=== PATIENT | male | born 1955 | race Caucasian/White ===

== ENCOUNTER 2023-12-26 01:27 | Day surgery (SDC) | payer MEDICARE, SELFPAY ==
--- NOTE | 2023-12-24 13:24 | PC.NURSE ---
Report to the Outpatient Waiting Room, entrance under the green pavilion located off [facility], at time __0700 on date __12/26/23 . Planned Procedure Time: _0900 . Time changes happen often and if your time is changed the preop area will call you the afternoon before. - You and your visitor will be asked to self-screen and do not enter if you have any COVID symptoms. - A mask is optional within the hospital at this time. Patients may have clear liquids (water, carbonated beverages, clear teas, apple juice) until 3 hours prior to surgery ( 6:00AM)with a maximum of 20 ounces. - No food from midnight until time of surgery - Infants may have breast milk until 4 hours before surgery, formula 6 hours prior to surgery. - Children will be allowed to drink immediately following surgery. If applicable, please bring a bottle or sippy cup to assist with drinking. Juice, water, soda, and popsicles are readily available. For infants on formula, please bring formula the day of surgery. Pacifiers are allowed. Take the following medications with a SIP of water the morning of surgery: NONE DO NOT STOP ANY OF YOUR OTHER PRESCRIPTION MEDICATIONS PRIOR TO SURGERY ?EXCEPT THE FOLLOWING Medications to discontinue per physician NONE Please no make-up, nail icelandic, hairspray, perfume, deodorant, or body powder the day of surgery. No jewelry (including any body piercings) or valuables the day of surgery, leave them at home. Please take a shower or bath the night before, or the morning of, surgery with an antibacterial soap. Wear comfortable, loose fitting clothing. Children are encouraged to wear pajamas. - Jewelry must be removed prior to entering the operating room. Rings and piercings that are not removed may be cut off. - The hospital will not accept responsibility for valuables. - Please leave all valuables, including medications, at home the day of surgery. If you are going home after surgery, a licensed [employer] flat[employer] company truck driver must drive you home. - NO public transportation without another adult if you receive anesthesia. - We recommend that an adult stay with you for 24 hours following discharge. - We also recommend that you do not drive, make important decision, drink alcoholic beverages, or take any drugs that were not prescribed by your health care provider for at least 24 hours after your discharge time. Follow any additional instructions given to you from your surgeon. If you or anyone in your household have experienced Covid symptoms in the past week, please notify your surgeon or the nurse liaison at the phone number below for possible testing. Telephone instructions given to __PATIENT and asked if any additional questions and then verbalized understanding. Patient advised to call surgeon office or pre surgery nurse liaison [phone] if any additional questions.
[2023-12-24 13:28] VITALS: BMI 31.6
[2023-12-26] VITALS (9 sets, daily range): BP systolic 102–138; BP diastolic 64–88; PULSE 71–95; RESP 14–20; TEMP 36.6–36.8; O2SAT 98–100
--- NOTE | ~2023-12-26 | XR_ITS ---
Supine and upright views of the abdomen Clinical history: Lithotripsy Findings: Bowel gas pattern is nonspecific. No evidence for obstruction or free air. There are probab le multiple small bilateral renal stones. Calcifications at the left midabdomen suggest possibly prox imal to mid left ureteral stones, measuring up to 17 mm, versus other soft tissue mineralization. Oss eous structures are intact. Impression: Possible mid left ureteral stones measuring up to 17 mm. Small bilateral renal stones also present. Reviewed, dictated and finalized at location . [employer] STUDENT TUTOR Impression: Possible mid left ureteral stones measuring up to 17 mm. Small bilateral renal stones also present.
[2023-12-26 07:52] LABS: Amorphous Sediment Urine Present; Appearance Urine Cloudy (Clear); Bacteria Urine None Seen /hpf; Bilirubin Urine Negative (Negative); Blood Urine 3+ (Negative); Color Urine Yellow (Yellow); Glucose Urine UA Negative (Negative); Ketones Urine Negative (Negative); Leukocyte Esterase Ur 1+ LEU/UL (Negative); Need Manual Microscopic Reviewed; Nitrate Urine Negative (Negative); Non Pathogenic Casts 0-2; Protein Urine Trace mg/dL (Negative); Squamous Epithelial Cell Urine None seen /hpf (Few); WBC Urine 0-5 /hpf
[2023-12-26 07:53] LABS: Add Urine Microscopic? YES
[2023-12-26] MEDS: LACTATED RINGERS 1,000 ML 30 ML IV CONT ×2 (08:00→10:27)
--- NOTE | 2023-12-26 08:09 | WPDANESEPPF ---
Anes - Initial Pre Proc Eval Procedure: Operation Date: 12/26/23 09:00 Proposed Procedures p Left Ureteral Extracorporeal Shock Wave Lithotripsy - Kingsley Simon MD s Possible Cystoscopy, Left Retrograde Pyelogram, Left Stent Placement - Kingsley Simon MD Date/Time: 12/26/23 08:09 Surgeon: Kingsley Simon MD Pre Op Diagnosis: left ureteral stone Patient Data Age: 68 Gender: M Height: 1.78 m Weight: 99.85 kg Allergies Allergy/AdvReac Type Severity Reaction Status Date / Time No Known Allergies Allergy Verified 12/24/23 13:16 Home Medications Medication Instructions Recorded Confirmed Type hydrocodone 5 mg-acetaminophen 325 1 tablet PO Q6H PRN Pain 12/24/23 12/26/23 History mg tablet Laboratory Tests 12/26/23 12/26/23 07:26 07:56 PT Pending INR Pending APTT Pending Urine Color Yellow (Yellow) Urine Appearance Cloudy H (Clear) Urine pH 6.0 (5.0-9.0) Ur Specific [place] 1.020 (1.001-1.035) Urine Protein Trace mg/dL (Negative) Urine Glucose (UA) Negative mg/dL (Negative) Urine Ketones Negative mg/dL (Negative) Ur Blood (Man) 3+ H (Negative) Urine Nitrate Negative (Negative) Urine Bilirubin Negative (Negative) Urine Urobilinogen 1.0 mg/dL (<2.0) Add Ur Microanalysis Reviewed Leukocyte Esterase Rfl 1+ H KINGS/UL (Negative) Urine RBC 11-20 H /hpf (0-2) Urine WBC 0-5 /hpf Ur Squamous Epith Cells None seen /hpf (Few) Amorphous Sediment Present (None) Urine Bacteria None seen /hpf Urine Casts 0-2 Patient hx anesthesia problems: none Family hx anesthesia problems: none Results Review: All pre-operative results and documents have been reviewed as part of the pre-operative evaluation. [facility] Past Medical History Medical History (Updated 12/26/23 @ 08:09 by Shawn Cash MD) History of renal stone Surgical History Surgical History (Updated 12/26/23 @ 08:09 by Shawn Cash MD) H/O lithotripsy Social History Social History Smoking status: Never smoker Living arrangements: alone Spiritual care concerns: No Anes - Eval Final PreProcedure Day of Procedure 12/26/23 08:09 Patient weight: obese Heart: regular rate and rhythm Lungs: clear to auscultation Airway: Mallampati scale class II Neurological: alert and oriented Last oral intake: >/= 8 hours ASA classification: II Emergent: no Anesthetic plan: proceed Anesthesia type and monitoring: general LMA and standard monitoring Results Review: All pre-operative results and documents have been reviewed as part of the pre-operative evaluation. Informed Consent: The patient's anesthetic plan and its attendant risks and benefits were discussed with the patient/family/POA. Questions were solicited and answers provided to the satisfaction of the patient/family/POA.
--- NOTE | 2023-12-26 08:14 | WPDHPUPDATE1 ---
History and Physical Update Update Date/Time: 12/26/23 08:14 History and Physical has been reviewed, including an updated exam of the patient. There are NO changes in the patient's condition. Risks, benefits, and alternatives have been discussed and questions answered. Patient agrees to proceed with procedure. Proceed with left ureteral eswl
[2023-12-26 08:26] LABS: Prothrombin Time 13.7 Seconds (11.1-14.7)
[2023-12-26 08:27] LABS: Partial Thromboplastin Time 33.5 SECONDS (22.3-36.8)
--- NOTE | 2023-12-26 08:31 | SUR.PREOP ---
0730-Pt alone, daughter listed as contact-pt states Do not call my daughter. Alexander will pick me up at 1:00 Ask pt for Alexander's number-states he doesn't have a number, he doesn't have a phone Will defer situation to outside sales manager. 0740-Madison Valdes RN in to speak with pt. 0743-Madison Valdes to speak w/Dr. Simon.
--- NOTE | 2023-12-26 08:40 | SUR.PREOP ---
0800-Dr. Cash aware of above. 0823-Pt provides work # for Alexander. Contacted #-lady states Alexander comes and goes but I will give him your number if he comes in Dr. Simon aware.
[2023-12-26] MEDS: ceFAZolin 2 GM/D5W 50 ML 2 GM/50 ML BAG IVPB (08:46)
--- NOTE | 2023-12-26 09:11 | SUR.PREOP ---
0857-Pt's brother called-info given for p/u and states he will arrange a ride for pt leaf size picker ~1100.
--- NOTE | 2023-12-26 09:33 | W.PM.PROC2 ---
Procedure Note - Detailed Date of Procedure 12/26/23 Pre-op Diagnosis left ureteral stone-1.2 cm Post-op Diagnosis Same Procedure Performed Lithotripsy of left ureteral calculus Surgeon Kingsley Simon MD Anesthesia General Description of Procedure Patient was taken to the operative suite correctly identified. Once anesthesia was obtained was placed in the supine position with the stone localized in both planes. Patient had refused a ureteral stent. As such 3000 shocks were given to the stone. There appeared to be some fragmentation but obviously is not completely gone. Patient tolerated procedure well without any complications and was taken recovery stable condition. He will follow-up in 7-10 days with KUB. This completes dictation. Please send a copy of op note to my office. Estimated Blood Loss 0 Drains No Packing No Pathology None sent Complications No immediate complications Condition Stable Disposition PACU
[2023-12-26] MEDS: fentaNYL CITRATE INJ (*CRX) 100 MCG/2 ML VIAL 25 MCG IV PUSH ×3 (10:19→10:43)
[2023-12-26] MEDS: oxyCODONE HCL (*CRX) 5 MG TAB IR PO (11:05)
--- NOTE | 2023-12-26 12:08 | SUR.PHASEII ---
Pt. is awaiting ride home to discharge.
--- NOTE | 2024-01-21 13:05 | WPDANESEPPF ---
Anes - Initial Pre Proc Eval Procedure: Operation Date: 12/26/23 09:00 Proposed Procedures p Left Ureteral Extracorporeal Shock Wave Lithotripsy - Kingsley Simon MD s Possible Cystoscopy, Left Retrograde Pyelogram, Left Stent Placement - Kingsley Simon MD Date/Time: 01/21/24 13:05 Surgeon: Kingsley Simon MD Pre Op Diagnosis: left ureteral stone Patient Data Age: 68 Gender: M Height: 1.78 m Weight: 102.4 kg Last Vital Signs Temp 36.6 C 12/26/23 09:44 Pulse 79 12/26/23 11:52 Resp 16 12/26/23 11:52 BP 102/64 12/26/23 11:52 Pulse Ox 99 12/26/23 11:00 O2 Del Method Room Air 12/26/23 11:00 O2 Flow Rate 8 12/26/23 09:59 Allergies Allergy/AdvReac Type Severity Reaction Status Date / Time No Known Allergies Allergy Verified 12/24/23 13:16 Home Medications Medication Instructions Recorded Confirmed Type hydrocodone 5 mg-acetaminophen 325 1 tablet PO Q6H PRN Pain 12/24/23 12/26/23 History mg tablet sulfamethoxazole 800 1 tablet PO Q12H #6 tabs 12/26/23 Rx mg-trimethoprim 160 mg tablet (Bactrim DS) Patient hx anesthesia problems: none Family hx anesthesia problems: none Results Review: All pre-operative results and documents have been reviewed as part of the pre-operative evaluation. [facility] Past Medical History Medical History History of renal stone Surgical History Surgical History H/O lithotripsy Social History Social History Smoking status: Never smoker Living arrangements: alone Spiritual care concerns: No Anes - Eval Final PreProcedure Day of Procedure 01/21/24 13:05 Patient weight: obese Airway: Mallampati scale class II ASA classification: II Emergent: no Anesthetic plan: proceed Anesthesia type and monitoring: general Results Review: All pre-operative results and documents have been reviewed as part of the pre-operative evaluation. Informed Consent: The patient's anesthetic plan and its attendant risks and benefits were discussed with the patient/family/POA. Questions were solicited and answers provided to the satisfaction of the patient/family/POA.
== END 2023-12-26 12:21 | disposition home or self-care (01) ==
PROVIDERS: Visit Provider Urology
PROC: (CPT 50590; principal; 2023-12-26 09:00)
DX: N20.1 Calculus of ureter (principal); E66.9 Obesity, unspecified; Z68.32 Body mass index [BMI] 32.0-32.9, adult
CPT/HCPCS: 50590; 36415; 74018; 81001; 85610; 85730; A9270; J0690; J1100; J2250; J2405; J3010; J7030; J7120

== ENCOUNTER 2024-01-08 11:15 | Outpatient (CLI) | payer MEDICARE, SELFPAY ==
--- NOTE | ~2024-01-08 | XR_ITS ---
EXAMINATION: XR abdomen/kub 1V INDICATION: History of bilateral kidney stones TECHNIQUE: Supine views of the abdomen were obtained on 2 radiographs. COMPARISON: 12/26/2023 FINDINGS: There is been interval treatment or passage of a stone in the proximal left ureter. No ston e fragments are identified in the ureters or within the urinary bladder. Right kidney stones measure up to 3 mm. The left kidney stones measure up to 6 mm. The bowel gas pattern is normal. There is mild osteoarthritis of the hips. Phleboliths are noted in the pelvis. IMPRESSION: 1. Interval treatment or passage of a left ureteral stone. 2. Bilateral nephrolithiasis. Reviewed, dictated and finalized at location L. H OPERATOR
== END 2024-01-08 11:16 | disposition home or self-care (01) ==
PROVIDERS: Visit Provider Urology
DX: N20.0 Calculus of kidney (principal)
CPT/HCPCS: 74018